=== PATIENT | male | born 1990 | race Caucasian/White ===

== ENCOUNTER 2025-07-11 18:22 | Emergency (ER) | payer BC, MEDICAID, OTHER ==
[~2025-07-11] VITALS: Ht 167.6 cm; Wt 59.0 kg
[2025-07-11 18:56] VITALS: BP 100/52; TEMP 98.2
[2025-07-11] MEDS ORDERED: IBUP-1955 PO (20:04)
[2025-07-11] MEDS ORDERED: ACET325C7 PO (20:04)
[2025-07-11 20:14] VITALS: O2SAT 98
== END 2025-07-11 20:15 | disposition home or self-care (01) ==
LOC: ER 18:24
DX: R53.1 Weakness (principal)